=== PATIENT | female | born 1970 | race Hispanic/Latino ===

== ENCOUNTER 2016-08-19 07:22 | Day surgery (SDC) | payer MEDICAID ==
[2016-08-19] MEDS ORDERED: Lactated Ringer's 500 ML IV ONE (08:11)
[2016-08-19 08:38] VITALS: TEMP 96.8
[2016-08-19] MEDS ORDERED: Propofol 10 mg/ml Inj (20 ML) ONE (10:00)
[2016-08-19 11:01] VITALS: BP 120/60; PULSE 52; RESP 15; O2SAT 97
== END 2016-08-19 13:50 | disposition home or self-care (01) ==
LOC: H.ENDO 07:22
PROVIDERS: ATTEND Internal Medicine Gastroenterology
DX: Z12.11 Encounter for screening for malignant neoplasm of colon (principal); E78.5 Hyperlipidemia, unspecified; J44.9 Chronic obstructive pulmonary disease, unspecified; K64.8 Other hemorrhoids; Z86.73 Personal history of transient ischemic attack (TIA), and cerebral infarction without residual deficits; K21.9 Gastro-esophageal reflux disease without esophagitis; K44.9 Diaphragmatic hernia without obstruction or gangrene; K26.9 Duodenal ulcer, unspecified as acute or chronic, without hemorrhage or perforation; K31.9 Disease of stomach and duodenum, unspecified